=== PATIENT | male | born 1990 | race Caucasian/White ===

== ENCOUNTER 2021-08-20 19:07 | Emergency (ER) | payer OTHER, SELFPAY ==
[2021-08-20 19:32] VITALS: BP 154/97; PULSE 60; RESP 16; TEMP 36.6; O2SAT 100
--- NOTE | 2021-08-20 20:00 | ED.EAR ---
HPI - Ear Problem General Chief complaint: Ear Stated complaint: ear pain Time Seen by Provider: 08/20/21 19:35 Source: patient Mode of arrival: ambulatory Limitations: no limitations History of Present Illness HPI Narrative: Pt is a 30 y/o male, PMHx of recurrent AOM, presents to ED via POV with his spouse iwcher C/O left ear pain for the past 2 days, worse this morning, waking with drainage in the canal. He endorses muffled hearing as well. He denies associated fevers or chills, CP, SOB, sore throat, cough, abdominal pain, NVDC or urinary symptoms. He denies recent ear infection or abx therapy in the past 30 days. He is taking APAP for discomfort with some relief. MD Complaint: ear pain and ear discharge Location: left ear Duration: constant Severity: moderate Relieving factors: other (APAP) Exacerbating factors: position of head Discharge from ear: Reports yes - purulent Associated symptoms ear: decreased hearing Treatment prior to arrival: oral analgesic Related Data Allergies Allergy/AdvReac Type Severity Reaction Status Date / Time No Known Allergies Allergy Verified 08/20/21 19:33 Review of Systems Review of Systems: refer to HPI ENT: Reports system reviewed and no additional complaints, except as documented Exam Const: General: healthy appearing, no acute distress and alert Nutritional Appearance: obese Orientation/consciousness: patient oriented x3 HENMT: Head: normal to inspection, No palpable skull fracture present and normocephalic Ears: hearing grossly normal bilaterally, TM normal on the right (with tympanosclerosis ), TM abnormal bulging, wth effusion, erythematous, with fluid behind the TM, with loss of landmarks and perforated (scabbed lesion noted to the center of the left TM. NO open perforation visible, no active drainage or blood in the canal) and other Course Course Emergency Course: pt is advised of plan to treat with oral abx and abx ear drops as well, encouraging FU with PCP In 3 days for an ear check, APAP and Motrin for discomfort, discuss ENT referral with PCP given hx of recurrent infections as an adult. Pt is agreeable with plan. Vital Signs Vital signs: Vital Signs Temperature 36.6 C 08/20/21 19:32 Pulse Rate 60 08/20/21 19:32 Respiratory Rate 16 08/20/21 19:32 Blood Pressure 154/97 H 08/20/21 19:32 Pulse Oximetry 100 03/09/22 19:32 Temperature 36.6 C 08/20/21 19:32 Pulse Rate 60 08/20/21 19:32 Respiratory Rate 16 08/20/21 19:32 Blood Pressure 154/97 H 08/20/21 19:32 Pulse Oximetry 100 08/20/21 19:32 Medical Decision Making MDM Narrative Medical decision making narrative: DC with Augmentin and Floxin OTIC, FU with PCP Differential Diagnosis Differential Diagnosis: AOM, OTE, perforation of TM, serous OM Medical Records Medical records reviewed: Yes I reviewed the external patient's medical records. Vital Signs Vital Signs: Vital Signs Temperature 36.6 C 08/20/21 19:32 Pulse Rate 60 08/20/21 19:32 Respiratory Rate 16 08/20/21 19:32 Blood Pressure 154/97 H 08/20/21 19:32 Pulse Oximetry 100 08/20/21 19:32 Temperature 36.6 C 08/20/21 19:32 Pulse Rate 60 08/20/21 19:32 Respiratory Rate 16 08/20/21 19:32 Blood Pressure 154/97 H 08/20/21 19:32 Pulse Oximetry 100 08/20/21 19:32 Discharge Plan Discharge Clinical Impression: Recurrent AOM (acute otitis media) Patient Disposition: Home, Self-Care Condition: Stable Instructions: Antibiotic Form, Ear Infection (ED) Additional Instructions: START AND COMPLETE ORAL ANTIBIOTICS DIRECTED. USE EAR DROPS ADDITIONALLY. SEE YOUR PRIMARY CARE PROVIDER IN 3 DAYS FOR AN EAR CHECK WITHOUT FAIL. DISCUSS ENT REFERRAL INDICATED, GIVEN YOUR HISTORY OF RECURRENT EAR INFECTIONS THROUGHOUT YOUR ADULT LIFE Prescriptions: New amoxicillin-pot clavulanate 875-125 mg tablet 1 tablet PO Q12H Qty: 20 RF: 0 ofloxacin 0.3 % drops 10 drp LEFT EAR BID 7 Days Qty: 1
[2021-08-20 20:36] VITALS: BP 142/86; PULSE 62; RESP 18; O2SAT 100
== END 2021-08-20 20:37 | disposition home or self-care (01) ==
LOC: ANHED 20:26
PROVIDERS: Emergency Provider Nurse Practitioner Family
DX: H66.92 Otitis media, unspecified, left ear (principal)
CPT/HCPCS: 99283

== ENCOUNTER 2022-04-14 17:26 | Emergency (ER) | payer OTHER, SELFPAY ==
--- NOTE | ~2022-04-14 | CT_ITS ---
EXAMINATION: CT brain wo con DATE: 04/14/2022 18:09 INDICATION: head injury . TECHNIQUE: Computed tomography (CT) of the head was performed without intravenous contrast. The mA wa s adjusted according to patient size. Iterative reconstruction technique was employed. The dose-lengt h product was 681.00 mGy-cm. COMPARISON: None FINDINGS: No acute intracranial hemorrhage or extra-axial fluid collection. No hydrocephalus, mass, or herniation. No acute ischemic infarct. Unremarkable dural venous sinus attenuation. No acute osseous abnormality. Old right medial orbital wall fracture The aerated spaces are clear. IMPRESSION: No acute intracranial process. Reviewed, dictated and finalized at location K.
--- NOTE | ~2022-04-14 | CT_ITS ---
EXAMINATION: CT cervical spine wo con DATE: 04/14/2022 18:09 INDICATION: head injury TECHNIQUE: Computed tomography (CT) of the cervical spine was performed without intravenous contrast. Automated exposure control and iterative reconstruction technique were employed. The dose-length pro duct was 551.00 mGy-cm. COMPARISON: None FINDINGS: Vertebral Body Alignment: Intact. Craniocervical and atlantoaxial alignment: No significant degenerative change. Alignment intact. Osseous structures/fracture: No evidence of a lytic or blastic process in the visualized spine. No e vidence of acute fracture. Cervical soft tissues: The paraspinal soft tissues planes are maintained. Right-sided aortic arch. Degenerative changes: No significant degenerative changes. IMPRESSION: No acute fracture or traumatic malalignment in the cervical spine. Reviewed, dictated and finalized at location K.
[2022-04-14 17:41] VITALS: BP 159/90; PULSE 107; RESP 14; TEMP 36.8; O2SAT 98
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
[2022-04-14 19:40] VITALS: BP 164/74; PULSE 70; RESP 12; O2SAT 98
== END 2022-04-14 19:43 | disposition home or self-care (01) ==
PROVIDERS: Emergency Provider Nurse Practitioner Family
DX: S06.0X0A Concussion without loss of consciousness, initial encounter (principal); W51.XXXA Accidental striking against or bumped into by another person, initial encounter
CPT/HCPCS: 70450; 72125; 99284

== ENCOUNTER 2022-04-19 20:13 | Emergency (ER) | payer OTHER, SELFPAY ==
--- NOTE | ~2022-04-19 | XR_ITS ---
EXAMINATION: XR chest 1V portable INDICATION: Flulike symptoms TECHNIQUE: Portable AP chest at 2345 hours COMPARISON: None available FINDINGS: The lungs are free of acute opacities. No pleural effusion or pneumothorax. The cardiomedia stinal silhouette is normal. The visualized bones and soft tissues are unremarkable. IMPRESSION: 1. No acute cardiopulmonary abnormality. Reviewed, dictated and finalized at location B. D [employer] ASSIST[employer]
[2022-04-19 20:22] VITALS: BP 143/91; PULSE 116; RESP 20; TEMP 38; O2SAT 100
[2022-04-19 21:09] LABS: Influenza A QL RT-PCR Negative (Negative); Influenza B QL RT-PCR Negative (Negative); SARS-CoV-2 RNA PCR Negative
--- NOTE | 2022-04-19 23:38 | ECG_ITS ---
Measurements Intervals [place] Rate: 80 P: 56 OR: 149 QRS: -18 QRSD: 107 T: 35 QT: 348 QTc: 403 Interpretive Statements SINUS RHYTHM WITH SINUS ARRHYTHMIA DELAYED PRECORDIAL R/S TRANSITION VOLTAGE CRITERIA FOR LVH BORDERLINE ECG NO PREVIOUS ECG AVAILABLE FOR COMPARISON Electronically Signed On 04-20-2022 6:25:58 [employer] by James Hollingsworth D.O.
--- NOTE | 2022-04-19 23:39 | ED.GENADULT ---
HPI - General Adult General Chief complaint: Unspecified Stated complaint: Flu like symptoms Time Seen by Provider: 04/19/22 23:12 History of Present Illness HPI narrative: This is a 31-year-old male presenting ED with 2 days of flu-like symptoms. Patient has been having sore throat, headache, body aches, nausea and diarrhea. He has had decreased oral intake. Patient denies chest pain, difficulty breathing, urinary symptoms or abdominal pain. Related Data Allergies Allergy/AdvReac Type Severity Reaction Status Date / Time No Known Allergies Allergy Verified 04/19/22 23:01 Review of Systems Review of Systems: CONSTITUTIONAL: Denies night sweats. EYES: No eye pain ENT: Denies rhinorrhea CARDIOVASCULAR: Denies palpitations RESPIRATORY: Denies hemoptysis GASTROINTESTINAL: Denies hematemesis GENITOURINARY: Denies hematuria. SKIN: Denies rash MUSCULOSKELETAL: Admits myalgias NEUROLOGIC: Denies weakness. PSYCHIATRIC: Denies delusions PMFSH Past Medical History Medical History Recurrent AOM (acute otitis media) Social History Social History Social History: patient denies use of alcohol or cigarettes, uses marijuana daily, denies drug use Exam Narrative: APPEARANCE: patient is lying in bed, he appears uncomfortable Head: atraumatic. EYES: EOMI, NOSE: Atraumatic NECK: Trachea midline RESPIRATORY: No increased rate of breathing, clear lungs bilaterally CARDIOVASCULAR: tachycardic, normal perfusion ABDOMINAL: Non-distended MUSCULOSKELETAl: No obvious deformities NEURO: Alert. Moving 4/4 extremities SKIN:: Warm, dry. Normal color PSYCHIATRIC: Normal affect Course Vital Signs Vital signs: Vital Signs Temperature 100.4 F H 04/19/22 20:22 Pulse Rate 116 H 04/19/22 20:22 Respiratory Rate 20 04/19/22 20:22 Blood Pressure 143/91 H 04/19/22 20:22 Pulse Oximetry 100 04/19/22 20:22 Oxygen Delivery Room Air 04/19/22 20:22 Temperature 100.4 F H 04/19/22 20:22 Pulse Rate 71 04/20/22 00:48 Respiratory Rate 16 04/20/22 00:48 Blood Pressure 126/77 04/20/22 00:48 Pulse Oximetry 99 11/07/22 00:48 Oxygen Delivery Room Air 04/19/22 20:22 Medical Decision Making MDM Narrative Medical decision making narrative: this is a 31-year-old male presenting with flu-like symptoms. He has a fever he is tachycardic. Basic lab work, EKG and chest x-ray been ordered. He has been given 2 L of fluid, Toradol and Tylenol, Zofran and loperamide. EKG interpretation: Rhythm [sinus], Rate 80, [place] -[normal], [place] -[normal], QRS [narrow], QTC [normal], T waves -[negative for concerning inversions], ST Segments - [Negative for concerning elevations] Final interpretations: [Normal Sinus Rhythm] My interpretation of the chest x-ray was no acute cardiopulmonary process Patient's white count was elevated at 15. The rest of his lab work was within normal limits. After fluids and Motrin and Tylenol the patient's vital signsve normalized. He is no longer tachycardic. He is feeling better. He is tolerating p.o.. Patient be discharged home with supportive care. Vital Signs Vital Signs: Vital Signs Temperature 100.4 F H 04/19/22 20:22 Pulse Rate 116 H 04/19/22 20:22 Respiratory Rate 20 04/19/22 20:22 Blood Pressure 143/91 H 04/19/22 20:22 Pulse Oximetry 100 04/19/22 20:22 Oxygen Delivery Room Air 04/19/22 20:22 Temperature 100.4 F H 04/19/22 20:22 Pulse Rate 71 04/20/22 00:48 Respiratory Rate 16 04/20/22 00:48 Blood Pressure 126/77 04/20/22 00:48 Pulse Oximetry 99 04/20/22 00:48 Oxygen Delivery Room Air 04/19/22 20:22 Lab Data Result diagrams: 04/20/22 00:01 04/20/22 00:01 Labs: Lab Results 04/19/22 04/19/22 04/20/22 Range/Units 20:29 23:54 00:01 WBC 15.1 H (4.5-10.0) K/mm3 RBC 5.59
[2022-04-19] MEDS: ONDANSETRON INJ 4 MG/2 ML VIAL IV PUSH (23:57)
[2022-04-19] MEDS: SODIUM CHLORIDE 0.9% IV 2,000 ML 999 ML IV CONT (23:57)
[2022-04-20 00:02] VITALS: PULSE 80
[2022-04-20 00:03] VITALS: BP 155/92; PULSE 90; RESP 17; O2SAT 99
[2022-04-20 00:03] LABS: Glucose Point of Care 98 mg/dl (65-105)
[2022-04-20] MEDS: LOPERAMIDE HCL 2 MG CAPSULE 4 MG PO (00:13)
[2022-04-20] MEDS: KETOROLAC 15 MG/ML VIAL (*BKC) IV PUSH (00:14)
[2022-04-20 00:17] LABS: Basophils Percent Auto 0.3 % (0.2-1.2); Eosinophils Absolute Auto 0.1 K/mm3 (0-0.3); Eosinophils Percent Auto 0.5 % (0-4.4); Hematocrit 48.4 % (42.0-52.0); Hemoglobin 16.4 g/dL (14.0-18.0); Immature Granulocyte Absolute 0.07 K/mm3 (0.00-0.031); Immature Granulocyte Percent A 0.5 % (0-0.5); Lymphocytes Absolute Auto 1.84 K/mm3 (0.9-3.2); Lymphocytes Percent Auto 12.2 % (18.3-44.2); Mean Corpuscular HGB Conc 33.9 g/dl (32-36); Mean Corpuscular Hemoglobin 29.3 pg (26-34); Mean Corpuscular Volume 86.6 fl (80-100); Mean Platelet Volume 10.3 fl (7.4-10.4); Monocytes Percent Auto 6.4 % (2.6-8.5); Neutrophils Absolute Auto 12.1 K/mm3 (1.3-6.7); Neutrophils Percent Auto 80.1 % (45.5-73.1); Platelet Count Result 266 k/mm3 (150-375); Red Blood Count 5.59 M/mm3 (4.6-6.20); Red Cell Distribution Width 14.4 % (11.5-14.5); White Blood Count 15.1 K/mm3 (4.5-10.0)
[2022-04-20 00:48] VITALS: BP 126/77; PULSE 71; RESP 16; O2SAT 99
[2022-04-20 00:48] LABS: Anion Gap 12 mmol/L (8-16); Blood Urea Nitrogen 15 mg/dL (9-20); Calcium 9.1 mg/dL (8.4-10.2); Carbon Dioxide 24 mmol/L (22-30); Chloride 103 mmol/L (98-107); Estimated Glomerular Filt Rate > 60; Glucose 85 mg/dL (65-110); Potassium 4.1 mmol/L (3.4-5.0); Sodium 139 mmol/L (137-145)
[2022-04-20 02:04] VITALS: BP 123/73; PULSE 77; RESP 18; O2SAT 99
== END 2022-04-20 02:06 | disposition left against medical advice (07) ==
PROVIDERS: Physician Assistant; Emergency Provider Emergency Medicine
DX: B34.9 Viral infection, unspecified (principal); Z20.822 Contact with and (suspected) exposure to COVID-19; R94.31 Abnormal electrocardiogram [ECG] [EKG]
CPT/HCPCS: 36415; 71045; 80048; 82948; 83735; 85025; 87636; 93005; 96361; 96365; 96374; 96375; 99284; A9270; J0131; J1885; J2405; J7030

== ENCOUNTER 2023-01-24 19:30 | Emergency (ER) | payer OTHER, SELFPAY ==
--- NOTE | ~2023-01-24 | XR_ITS ---
EXAMINATION: XR chest 1V DATE: 01/24/2023 20:15 INDICATION: Flulike symptoms. TECHNIQUE: A single frontal view of the chest was obtained. COMPARISON: Chest one view 04/19/2022 FINDINGS: There is no pneumonia, pleural effusion, or pneumothorax. There is a right-sided aortic arc h. The heart size is normal. IMPRESSION: 1. No acute cardiopulmonary disease. Reviewed, dictated and finalized at location E.
[2023-01-24 19:32] VITALS: BP 156/80; PULSE 103; RESP 16; TEMP 36.9; O2SAT 99
--- NOTE | 2023-01-24 19:47 | ED.GENADULT ---
HPI - General Adult General Chief complaint: Unspecified Stated complaint: Flu SS Time Seen by Provider: 01/24/23 19:40 History of Present Illness HPI narrative: This is a 32-year-old male presenting ED with a chief complaint of flu-like symptoms x4 days. Patient has had URI symptoms, cough nausea vomiting diarrhea and body aches. Patient denies sick contacts at home. He has been able tolerate p.o.. He has been using DayQuil for symptoms. Patient denies chest pain, shortness of breath abdominal pain or urinary symptoms. He has been vaccinated against COVID Related Data Allergies Allergy/AdvReac Type Severity Reaction Status Date / Time No Known Allergies Allergy Verified 01/24/23 19:35 [facility] Past Medical History Medical History Recurrent AOM (acute otitis media) Social History Social History Social History: patient denies use of alcohol or cigarettes, uses marijuana daily, denies drug use Exam Narrative: APPEARANCE: No apparent distress. Head: tympanic membranes have scar tissue but no evidence of acute otitis media. EYES: EOMI, NOSE: Atraumatic NECK: Trachea midline RESPIRATORY: No increased rate of breathing , clear to auscultation CARDIOVASCULAR: RRR, no peripheral edema ABDOMINAL: Non-distended MUSCULOSKELETAl: No obvious deformities NEURO: Alert. Moving 4/4 extremities SKIN:: Warm, dry. Normal color PSYCHIATRIC: Normal affect Course Vital Signs Vital signs: Vital Signs Temperature 98.5 F 01/24/23 19:32 Pulse Rate 103 H 01/24/23 19:32 Respiratory Rate 16 01/24/23 19:32 Blood Pressure 156/80 H 01/24/23 19:32 Pulse Oximetry 99 01/24/23 19:32 Oxygen Delivery Room Air 01/24/23 19:32 Temperature 98.5 F 01/24/23 19:32 Pulse Rate 103 H 01/24/23 19:32 Respiratory Rate 16 01/24/23 19:32 Blood Pressure 156/80 H 01/24/23 19:32 Pulse Oximetry 99 01/24/23 19:32 Oxygen Delivery Room Air 01/24/23 19:32 Medical Decision Making [facility] Narrative Medical decision making narrative: -Presentation: 32-year-old presenting with 4 days of flu-like symptoms -DDX includes but is not limited to: viral illness, COVID, flu, pneumonia, bronchitis -Co-morbidities complicating care: recurrent ear infections -Social determinants of health: 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 Chest x-ray negative. Independent EKG interpretation: Rhythm [sinus], Rate [103], [place] -[normal], [place] -[normal], QRS [narrow], QTC [normal], T waves -[negative for concerning inversions], ST Segments - [Negative for concerning elevations] Final interpretations: sinus tachycardia -Interventions: Motrin, Tylenol -Shared decision making / Disposition: patient has stable vital signs And is well appearing. he is vaccinated and low risk for progression to serious illness. Patient will be discharged with return precautions. -RX Motrin, Tylenol Vital Signs Vital Signs: Vital Signs Temperature 98.5 F 01/24/23 19:32 Pulse Rate 103 H 01/24/23 19:32 Respiratory Rate 16 01/24/23 19:32 Blood Pressure 156/80 H 01/24/23 19:32 Pulse Oximetry 99 01/24/23 19:32 Oxygen Delivery Room Air 01/24/23 19:32 Temperature 98.5 F 01/24/23 19:32 Pulse Rate 103 H 01/24/23 19:32 Respiratory Rate 16 01/24/23 19:32 Blood Pressure 156/80 H 01/24/23 19:32 Pulse Oximetry 99 01/24/23 19:32 Oxygen Delivery Room Air 01/24/23 19:32 Lab Data Labs: Lab Results 01/24/23 Range/Units 20:06 Influenza A (RT-PCR) Negative (Negative) Influenza B (RT-PCR) Negative (Negative) RSV (RT-PCR) Negative (Negative) SARS-CoV-2 RNA (RT-PCR) Positive A (Negative) Discharge Plan Discharge Clinical Impression: NISSAID [facility]
--- NOTE | 2023-01-24 19:48 | ECG_ITS ---
Measurements Intervals [place] Rate: 93 P: 33 [place]: 112 QRS: -15 QRSD: 109 T: 83 QT: 316 QTc: 395 Interpretive Statements SINUS RHYTHM WITH SINUS ARRHYTHMIA WITH SHORT [place] INTERVAL LEFT VENTRICULAR HYPERTROPHY AND ST-T CHANGE BORDERLINE ECG COMPARED TO ECG 04/19/2022 23:51:17 ST (T WAVE) DEVIATION NOW PRESENT Electronically Signed On 01-25-2023 15:35:26 CDT by Arsh Alvarado M.D.
[2023-01-24] MEDS: ACETAMINOPHEN 500 MG TABLET 1000 MG PO (20:07)
[2023-01-24] MEDS: AMOXICILLIN/CLAVULANATE K 875-125 MG TAB 1 TABLET PO (20:10)
[2023-01-24] MEDS: IBUPROFEN 400 MG TABLET 800 MG PO (20:16)
[2023-01-24 20:51] LABS: Influenza A QL RT-PCR Negative (Negative); Influenza B QL RT-PCR Negative (Negative); RSV RNA, RT-PCR Negative (Negative); SARS-CoV-2 RNA PCR Positive (Negative)
== END 2023-01-24 21:54 | disposition home or self-care (01) ==
PROVIDERS: Emergency Provider Emergency Medicine
DX: U07.1 COVID-19 (principal); I51.7 Cardiomegaly
CPT/HCPCS: 71045; 87637; 93005; 99283; A9270

== ENCOUNTER 2024-09-01 23:20 | Emergency (ER) | payer OTHER, SELFPAY ==
--- NOTE | ~2024-09-01 | CT_ITS ---
EXAMINATION: CT IAC/mastoids BI w con DATE: 09/02/2024 02:12 INDICATION: Concern for mastoiditis TECHNIQUE: Computed tomography (CT) of the mastoids/internal auditory canals was performed with 75 cc Omnipaque 350 intravenous contrast. The dose-length product was 389.84 mGy-cm. Automated exposure co ntrol and iterative reconstruction technique were employed. COMPARISON: None FINDINGS: The mastoids are pneumatized. No significant mucosal thickening or air-fluid levels. No muc operiosteal reaction. Temporomandibular joints within normal limits. External auditory canals are walter ar bilaterally. IMPRESSION: 1. No evidence for mastoiditis. Reviewed, dictated and finalized at location B.
[2024-09-01 23:26] VITALS: BP 143/98; PULSE 118; RESP 20; TEMP 37; O2SAT 100
[2024-09-01 23:56] VITALS: BP 161/91; PULSE 92; RESP 25; O2SAT 94
--- NOTE | 2024-09-02 00:13 | ECG_ITS ---
Test Date: 2024-09-02 00:49:19 Measurements Intervals [place] Rate: 82 P: 27 ND: 132 QRS: -20 QRSD: 116 T: 53 QT: 353 QTc: 414 Interpretive Statements SINUS RHYTHM WITH SINUS ARRHYTHMIA POSSIBLE LEFT VENTRICULAR HYPERTROPHY [VOLTAGE CRITERIA PLUS LAE OR QRS WIDENING] No previous ECG available for comparison Electronically Signed On 09-02-2024 17:34:27 CDT by Alan Avalos M.D.
--- NOTE | 2024-09-02 00:28 | ED_ITS ---
HPI - Ear Problem General Chief complaint: Ear <Liz Trivedi APRN - Last Filed: 09/02/24 03:51> Stated complaint: ear pain <Liz Trivedi APRN - Last Filed: 09/02/24 03:51> Time Seen by Provider: 09/01/24 23:38 <Liz Trivedi APRN - Last Filed: 09/02/24 03:51> History of Present Illness HPI Narrative: Patient is a 34-year-old male who presents to the ER and with left ear pain. He reports he has had ear problems for the past 2 years. Patient was seen for severe infection in this ER in 2021 and he had a perforated eardrum. He reports his left ear has been draining for approximately 1 month. Patient reports his left jaw started swelling approximately 1 week ago. He reports pain has increased over the last 2 days. Patient denies any recent fevers, neck stiffness, visual changes, headaches. He does endorse some mastoid tenderness. Patient reports his symptoms all started approximately 1 month ago when he had the flu. He denies any other relevant medical history. <Liz Trivedi APRN - Last Filed: 09/02/24 03:51> Related Data Allergies/adverse reactions: Allergies Allergy/AdvReac Type Severity Reaction Status Date / Time No Known Allergies Allergy Verified 09/01/24 23:21 <Liz Trivedi APRN - Last Filed: 09/02/24 03:51> Review of Systems 2 Review of Systems: All systems reviewed & are unremarkable except as noted in HPI and below <Liz Trivedi APRN - Last Filed: 09/02/24 03:51> [facility] Past Medical History Medical History: Medical History Recurrent AOM (acute otitis media) <Liz Trivedi APRN - Last Filed: 09/02/24 03:51> Social History Social History: Social History Social History: patient denies use of alcohol or cigarettes, uses marijuana daily, denies drug use <Liz Trivedi APRN - Last Filed: 09/02/24 03:51> Exam 2 Narrative: GENERAL: Well appearing, well-nourished, non-toxic, in no acute distress. HEAD: Normocephalic, atraumatic. R tympanic membrane purulent, unable to visualize ear drum. L tympanic membrane red, perforated. Mild postauricular erythema, + tenderness, swelling. + mastoid tenderness NECK: Supple. No adenopathy, no masses. RESPIRATORY: Airway patent, respirations nonlabored. Clear to auscultation bilaterally, no rales, rhonchi, wheezing. CARDIOVASCULAR: Regular rate and rhythm without murmurs, rubs, or gallops. Peripheral pulses 2+ and equal bilaterally. ABDOMINAL: Soft, nontender, nondistended, no hepatosplenomegaly. Normoactive BS. MUSCULOSKELETAL: Moves all extremities. Strength/ROM intact without gross deformities. SKIN: Warm, dry, normal color. No rashes. NEURO: A&O X3. Speech clear. Cranial nerves II-XII intact. No ataxic movements. PSYCHIATRIC: Appropriate mood and affect. Normal interaction. <Liz Trivedi APRN - Last Filed: 09/02/24 03:51> Course MASTER [employer] PARACHUTIST/PA Physician Supervision For this patient encounter, I reviewed the MASTER [employer]AL PARACHUTIST or PA documentation, treatment plan, and medical decision making; and I had [id number] time with this patient. <Jeremie Montano MD - Last Filed: 09/02/24 04:03> Vital Signs Vital signs: Vital Signs Temperature 37.0 C 09/01/24 23:26 Pulse Rate 118 H 09/01/24 23:26 Respiratory Rate 20 09/01/24 23:26 Blood Pressure 143/98 H 09/01/24 23:26 Pulse Oximetry 100 09/01/24 23:26 Oxygen Delivery Room Air 09/01/24 23:26 Temperature 36.8 C 09/02/24 01:40 Pulse Rate 65 09/02/24 01:40 Respiratory Rate 19 09/02/24 01:40 Blood Pressure 133/79 09/02/24 01:40 Pulse Oximetry 95 09/02/24 01:40 Oxygen Delivery Room Air 09/01/24 23:26 <Liz Trivedi APRN - Last Filed: 09/02/24 03:51> Vital Signs Temperature 37.0 C 09/01/24 23:26 Pulse Rate 118 H 09/01/24 23:26 Respiratory Rate 20 09/01/24 23:26 Blood Pressure 143/98 H 09/01/24 23:26 Pulse Oximetry 100 09/01/24 23:26 Oxygen Delivery Room Air 09/01/24 23:26 Temperature 36.8 C 09/02/24 01:40 Pulse Rate 65 09/02/24 01:40 Respiratory Rate 19 09/02/24 01:40 Blood Pressure 133/79 09/02/24 01:40 Pulse Oximetry 95 09/02/24 01:40 Oxygen Delivery Room Air 09/01/24 23:26 <Jeremie Montano MD - Last Filed: 09/02/24 04:03> Medical Decision Making MDM Narrative Medical decision making narrative: Patient is a 34-year-old male who presents to the ER and with left ear pain. He reports he has had ear problems for the past 2 years. Patient was seen for severe infection in this ER in 2021 and he had a perforated eardrum. He reports his left ear has been draining for approximately 1 month. Patient reports his left jaw started swelling approximately 1 week ago. He reports pain has increased over the last 2 days. Patient denies any recent fevers, neck stiffness, visual changes, headaches. He does endorse some mastoid tenderness. Patient reports his symptoms all started approximately 1 month ago when he had the flu. He denies any other relevant medical history. Labs Ordered: CBC, CMP, CRP, PTT, INR, lactic acid, blood cultures Imaging Ordered: CT mastoids bilateral Medications Ordered: Toradol IV, Decadron IV, 1 L normal saline IV bolus, Ancef IV Results: Pt's CT scan indicates Diagnosis: R otitis media, perforated L tympanic membrane Patient Education/Shared MDM: Results of the labs work and imaging shared with patient. He endorses improvement following medication administration. Patient strongly advised to maintain hydration status upon discharge and follow-up with ENT as soon as possible. He will be discharged home with a prescription for Augmentin and Ciprodex. Strict return precautions provided. Patient verbalized understanding is in agreement with plan. Vital signs stable at time of discharge. All questions answered. 0345- [facility] signed out to Dr. Montano. <Liz Trivedi APRN - Last Filed: 09/02/24 03:51> Patient is a 34-year-old male who presents to the ER and with left ear pain. He reports he has had ear problems for the past 2 years. Patient was seen for severe infection in this ER in 2021 and he had a perforated eardrum. He reports his left ear has been draining for approximately 1 month. Patient reports his left jaw started swelling approximately 1 week ago. He reports pain has increased over the last 2 days. Patient denies any recent fevers, neck stiffness, visual changes, headaches. He does endorse some mastoid tenderness. Patient reports his symptoms all started approximately 1 month ago when he had the flu. He denies any other relevant medical history. Labs Ordered: CBC, CMP, CRP, PTT, INR, lactic acid, blood cultures Imaging Ordered: CT mastoids bilateral Medications Ordered: Toradol IV, Decadron IV, 1 L normal saline IV bolus, Ancef IV Results: Pt's CT scan indicates Diagnosis: R otitis media, perforated L tympanic membrane Patient Education/Shared MDM: Results of the labs work and imaging shared with patient. He endorses improvement following medication administration. Patient strongly advised to maintain hydration status upon discharge and follow-up with ENT as soon as possible. He will be discharged home with a prescription for Augmentin and Ciprodex. Strict return precautions provided. Patient verbalized understanding is in agreement with plan. Vital signs stable at time of discharge. All questions answered. 0345- Care signed out to Dr. Montano. CT scan showed no evidence of mastoiditis <Jeremie Montano MD - Last Filed: 09/02/24 04:03> Differential Diagnosis Differential Diagnosis: Otitis media, perforated eardrum, mastoiditis <Liz Trivedi, SELMA - Last Filed: 09/02/24 03:51> Vital Signs Vital Signs: Vital Signs Temperature 37.0 C 09/01/24 23: Pulse Rate 118 H 09/01/24 23:26 Respiratory Rate 20 09/01/24 23: Blood Pressure 143/98 H 09/01/24 23:26 Pulse Oximetry 100 09/01/24 23:26 Oxygen Delivery Room Air 09/01/24 23: Temperature 36.8 C 09/02/24 01:40 Pulse Rate 65 09/02/24 01:40 Respiratory Rate 19 09/02/24 01:40 Blood Pressure 133/79 09/02/24 01:40 Pulse Oximetry 95 09/02/24 01:40 Oxygen Delivery Room Air 09/01/24 23:26 <Liz Trivedi APRN - Last Filed: 09/02/24 03:51> Vital Signs Temperature 37.0 C 09/01/24 23:26 Pulse Rate 118 H 09/01/24 23:26 Respiratory Rate 20 09/01/24 23:26 Blood Pressure 143/98 H 09/01/24 23:26 Pulse Oximetry 100 09/01/24 23:26 Oxygen Delivery Room Air 09/01/24 23:26 Temperature 36.8 C 09/02/24 01:40 Pulse Rate 65 09/02/24 01:40 Respiratory Rate 19 09/02/24 01:40 Blood Pressure 133/79 09/02/24 01:40 Pulse Oximetry 95 09/02/24 01:40 Oxygen Delivery Room Air 09/01/24 23:26 <Jeremie Montano MD - Last Filed: 09/02/24 04:03> Lab Data Lab results reviewed: Yes I reviewed the patient's lab results. <Liz Trivedi APRN - Last Filed: 09/02/24 03:51> Result diagrams: 09/02/24 00:32 09/02/24 00:32 <Liz Trivedi APRN - Last Filed: 09/02/24 03:51> Labs: Lab Results 09/02/24 Range/Units 00:32 WBC 11.6 H (4.5-10.0) K/mm3 RBC 5.43 (4.6-6.20) M/mm3 Hgb 16.7 (14.0-18.0) g/dL Hct 49.0 (42.0-52.0) % MCV 90.2 (80-100) fl MCH 30.8 (26-34) pg MCHC 34.1 (32-36) g/dl RDW 12.9 (11.5-14.5) % Plt Count 227 (150-375) k/mm3 MPV 9.6 (7.4-10.4) fl Immature Gran % (Auto) 0.3 (0-0.5) % Neut % (Auto) 68.9 (45.5-73.1) % Lymph % (Auto) 22.8 (18.3-44.2) % [place] % (Auto) 5.9 (2.6-8.5) % Eos % (Auto) 1.8 (0-4.4) % Baso % (Auto) 0.3 (0.2-1.2) % Lymph # (Auto) 2.65 (0.9-3.2) K/mm3 [place] # (Auto) 0.7 H (0.1-0.6) K/mm3 Eos # (Auto) 0.2 (0-0.3) K/mm3 Baso # (Auto) 0.0 (0.0-0.1) K/mm3 Abs Immat Gran (auto) 0.03 (0.00-0.031) K/mm3 Absolute Neuts (auto) 8.0 H (1.3-6.7) K/mm3 Absolute Nucleated RBC 0.000 (0.0-0.012) K/mm3 Nucleated RBC % 0.0 (0.0-0.2) % PT 13.2 (11.1-14.7) Seconds INR 1.0 APTT 26.6 (22.3-36.8) Seconds Sodium 137 (137-145) mmol/L Potassium 3.6 (3.4-5.0) mmol/L Chloride 103 (98-107) mmol/L Carbon Dioxide 24 (22-30) mmol/L Anion Gap 10 (4-12) mmol/L BUN 19 (9-20) mg/dL Creatinine 0.95 (0.7-1.3) mg/dL Estim Creat Clear Calc 108 ml/min Estimated GFR > 60 (59 - ) Glucose 92 (65-110) mg/dL Lactic Acid 0.8 (0.7-2.0) mmol/L Calcium 9.6 (8.4-10.2) mg/dL Total Bilirubin 0.3 (0.2-1.3) mg/dL AST 33 (17-59) U/L ALT 41 (6-50) U/L Alkaline Phosphatase 57 (38-126) U/L C-Reactive Protein 0.7 (<1.0) mg/dL Total Protein 8.0 (6.3-8.2) g/dL Albumin 4.5 (3.5-5.1) g/dL <Liz Trivedi, COMBAT CONTROL MANAGER - Last Filed: 09/02/24 03:51> Lab Results 09/02/24 Range/Units 00:32 WBC 11.6 H (4.5-10.0) K/mm3 RBC 5.43 (4.6-6.20) M/mm3 Hgb 16.7 (14.0-18.0) g/dL Hct 49.0 (42.0-52.0) % MCV 90.2 (80-100) fl MCH 30.8 (26-34) pg MCHC 34.1 (32-36) g/dl RDW 12.9 (11.5-14.5) % Plt Count 227 (150-375) k/mm3 MPV 9.6 (7.4-10.4) fl Immature Gran % (Auto) 0.3 (0-0.5) % Neut % (Auto) 68.9 (45.5-73.1) % Lymph % (Auto) 22.8 (18.3-44.2) % [place] % (Auto) 5.9 (2.6-8.5) % Eos % (Auto) 1.8 (0-4.4) % Baso % (Auto) 0.3 (0.2-1.2) % Lymph # (Auto) 2.65 (0.9-3.2) K/mm3 [place] # (Auto) 0.7 H (0.1-0.6) K/mm3 Eos # (Auto) 0.2 (0-0.3) K/mm3 Baso # (Auto) 0.0 (0.0-0.1) K/mm3 Abs Immat Gran (auto) 0.03 (0.00-0.031) K/mm3 Absolute Neuts (auto) 8.0 H (1.3-6.7) K/mm3 Absolute Nucleated RBC 0.000 (0.0-0.012) K/mm3 Nucleated RBC % 0.0 (0.0-0.2) % PT 13.2 (11.1-14.7) Seconds INR 1.0 APTT 26.6 (22.3-36.8) Seconds Sodium 137 (137-145) mmol/L Potassium 3.6 (3.4-5.0) mmol/L Chloride 103 (98-107) mmol/L Carbon Dioxide 24 (22-30) mmol/L Anion Gap 10 (4-12) mmol/L BUN 19 (9-20) mg/dL Creatinine 0.95 (0.7-1.3) mg/dL Estim Creat Clear Calc 108 ml/min Estimated GFR > 60 (59 - ) Glucose 92 (65-110) mg/dL Lactic Acid 0.8 (0.7-2.0) mmol/L Calcium 9.6 (8.4-10.2) mg/dL Total Bilirubin 0.3 (0.2-1.3) mg/dL AST 33 (17-59) U/L ALT 41 (6-50) U/L Alkaline Phosphatase 57 (38-126) U/L C-Reactive Protein 0.7 (<1.0) mg/dL Total Protein 8.0 (6.3-8.2) g/dL Albumin 4.5 (3.5-5.1) g/dL <Jeremie Montano MD - Last Filed: 09/02/24 04:03> Imaging Data Attestation: I personally reviewed and interpreted this imaging study as follows: < Liz Trivedi APRN - Last Filed: 09/02/24 03:51> Discharge Plan Discharge Clinical Impression: Rupture of left tympanic membrane, Otitis media in diseases classified elsewhere, right ear, Otitis media in diseases classified elsewhere, left ear <Liz Trivedi APRN - Last Filed: 09/02/24 03:51> Patient Disposition: Home, Self-Care <Liz Trivedi APRN - Last Filed: 09/02/24 03:51> Condition: Stable <Liz Trivedi APRN - Last Filed: 09/02/24 03:51> Instructions: Antibiotic Form, Ruptured Eardrum (ED), Ear Infection (ED) <Liz Trivedi APRN - Last Filed: 09/02/24 03:51> Additional Instructions: Please return to the ER with any worsening symptoms. Follow-up with primary care provider as soon as possible. Take all medications as prescribed, including regularly scheduled medications. Complete your full dose of antibiotics. <Liz Trivedi APRN - Last Filed: 09/02/24 03:51> Patient Language: Yoruba <Liz Trivedi APRN - Last Filed: 09/02/24 03:51> Prescriptions: New amoxicillin-pot clavulanate 875-125 mg tablet 1 tablet PO Q12H Qty: 20 0RF ciprofloxacin-dexamethasone 0.3-0.1 % drops,suspension 4 drp EACH EAR Q12H 7 Days Qty: 7.5 0RF <Liz Trivedi APRN - Last Filed: 09/02/24 03:51> Follow-up/Referrals: Arthur Pereira MD [Physician] - (ENT) PHYSICIAN,[employer]INE [Primary Care Provider] - <Liz Trivedi APRN - Last Filed: 09/02/24 03:51> Time of Disposition: 04:03 <Liz Trivedi APRN - Last Filed: 09/02/24 03:51> 04:03 <Jeremie Montano MD - Last Filed: 09/02/24 04:03>
[2024-09-02] MEDS: SODIUM CHLORIDE 0.9% IV 1,000 ML 999 ML IV CONT (00:38)
[2024-09-02] MEDS: KETOROLAC 15 MG/ML VIAL (*BKC) IV PUSH (00:39)
[2024-09-02 00:42] LABS: Basophils Percent Auto 0.3 % (0.2-1.2); Eosinophils Absolute Auto 0.2 K/mm3 (0-0.3); Eosinophils Percent Auto 1.8 % (0-4.4); Hemoglobin 16.7 g/dL (14.0-18.0); Immature Granulocyte Absolute 0.03 K/mm3 (0.00-0.031); Immature Granulocyte Percent A 0.3 % (0-0.5); Lymphocytes Absolute Auto 2.65 K/mm3 (0.9-3.2); Lymphocytes Percent Auto 22.8 % (18.3-44.2); Mean Corpuscular HGB Conc 34.1 g/dl (32-36); Mean Corpuscular Hemoglobin 30.8 pg (26-34); Mean Corpuscular Volume 90.2 fl (80-100); Mean Platelet Volume 9.6 fl (7.4-10.4); Monocytes Absolute Auto 0.7 K/mm3 (0.1-0.6); Monocytes Percent Auto 5.9 % (2.6-8.5); Neutrophils Percent Auto 68.9 % (45.5-73.1); Platelet Count Result 227 k/mm3 (150-375); Red Blood Count 5.43 M/mm3 (4.6-6.20); Red Cell Distribution Width 12.9 % (11.5-14.5); White Blood Count 11.6 K/mm3 (4.5-10.0)
[2024-09-02] MEDS: dexAMETHasone SOD PHOS INJ 10 MG/ML 1 ML VIAL IV PUSH (00:43)
[2024-09-02] MEDS: ceFAZolin 1 GM/NS 50 ML 1 GM/50 ML BAG IVPB (00:49)
[2024-09-02 00:56] LABS: Lactic Acid Reflex 0.8 mmol/L (0.7-2.0)
[2024-09-02 00:57] LABS: Prothrombin Time 13.2 Seconds (11.1-14.7)
[2024-09-02 00:58] LABS: Alanine Aminotransferase 41 U/L (6-50); Albumin Level 4.5 g/dL (3.5-5.1); Alkaline Phosphatase 57 U/L (38-126); Anion Gap 10 mmol/L (4-12); Aspartate Amino Transferase 33 U/L (17-59); Bilirubin,Total 0.3 mg/dL (0.2-1.3); Blood Urea Nitrogen 19 mg/dL (9-20); CRP 0.7 mg/dL (<1.0); Calcium 9.6 mg/dL (8.4-10.2); Carbon Dioxide 24 mmol/L (22-30); Chloride 103 mmol/L (98-107); Estimated CRCL calculation 108 ml/min; Estimated Glomerular Filt Rate > 60; Glucose 92 mg/dL (65-110); Partial Thromboplastin Time 26.6 Seconds (22.3-36.8); Potassium 3.6 mmol/L (3.4-5.0); Sodium 137 mmol/L (137-145)
[2024-09-02 01:40] VITALS: BP 133/79; PULSE 65; RESP 19; TEMP 36.8; O2SAT 95
[2024-09-02 03:00] VITALS: BP 121/74; PULSE 64; RESP 18; TEMP 36.4; O2SAT 99
== END 2024-09-02 04:15 | disposition home or self-care (01) ==
PROVIDERS: Emergency Provider Registered Nurse
DX: H72.92 Unspecified perforation of tympanic membrane, left ear (principal); H67.3 Otitis media in diseases classified elsewhere, bilateral; R94.31 Abnormal electrocardiogram [ECG] [EKG]
CPT/HCPCS: 36415; 70481; 80053; 83605; 85025; 85610; 85730; 86140; 87040; 93005; 96365; 96375; 99284; J0690; J1100; J1885; J7030; Q9967